=== PATIENT | female | born 1955 | race Caucasian/White ===

== ENCOUNTER 2023-03-27 11:50 | Day surgery (SDC) | payer OTHER ==
[~2023-03-27] VITALS: Ht 157.5 cm; Wt 73.5 kg
[2023-03-27] MEDS ORDERED: LIDOCAINE 2% 100 MG/5 ML UJET TP ONE (13:14)
[2023-03-27] MEDS ORDERED: fentaNYL citrate 0.05 MG/ML VIAL ONE (13:14)
[2023-03-27] MEDS ORDERED: fentaNYL citrate 0.05 MG/ML VIAL IVP ONE (14:05)
== END 2023-03-27 14:16 | disposition home or self-care (01) ==
LOC: MDS 11:50 → MMU 11:51 → MDS 14:16
PROVIDERS: ATTEND Internal Medicine Gastroenterology
DX: Z12.11 Encounter for screening for malignant neoplasm of colon (principal); K63.5 Polyp of colon; F32.A Depression, unspecified; I12.9 Hypertensive chronic kidney disease with stage 1 through stage 4 chronic kidney disease, or unspecified chronic kidney disease; E11.22 Type 2 diabetes mellitus with diabetic chronic kidney disease; N18.9 Chronic kidney disease, unspecified; E78.5 Hyperlipidemia, unspecified; K21.9 Gastro-esophageal reflux disease without esophagitis; E11.40 Type 2 diabetes mellitus with diabetic neuropathy, unspecified; Z90.710 Acquired absence of both cervix and uterus; Z90.49 Acquired absence of other specified parts of digestive tract; Z88.1 Allergy status to other antibiotic agents; Z79.84 Long term (current) use of oral hypoglycemic drugs
CPT/HCPCS: 45385; J3010